=== PATIENT | male | born 1955 | race African-American/Black ===

== ENCOUNTER 2017-03-30 10:42 | Emergency (ER) | payer MEDICAID ==
[~2017-03-30] VITALS: Ht 182.9 cm; Wt 84.0 kg
[2017-03-30] MEDS ORDERED: LISI2.5T47 PO (10:58)
[2017-03-30] MEDS ORDERED: HYDR12.529 PO (10:58)
[2017-03-30 12:35] LABS: CLARITY URINE CLEAR (CLEAR); COLOR URINE YELLOW (YELLOW); KETONES URINE NEGATIVE (NEGATIVE); LEUKOCYTE ESTERASE URINE NEGATIVE (NEGATIVE); NITRITE URINE NEGATIVE (NEGATIVE); OCCULT BLOOD URINE 2+ (NEGATIVE); PH URINE 7.5 (4.5-8.0); PROTEIN URINE NEGATIVE (NEGATIVE); SPECIFIC GRAVITY URINE 1.014 (1.005-1.030)
[2017-03-30] MEDS ORDERED: SODIUM CHLORIDE 0.9% 1,000 ML IV ONE (12:42)
[2017-03-30 13:21] LABS: BASOPHILS % 1.2 % (0.0-2.0); EOSINOPHILS % 5.5 % (0.0-5.0); HEMATOCRIT. 39.8 % (42.0-52.0); HEMOGLOBIN. 13.8 g/dL (14.0-18.0); LYMPHOCYTES % 34.2 % (20.0-50.0); MEAN CORPUSCULAR HEMOGLOBIN 30.8 pg (28.0-32.0); MEAN CORPUSCULAR VOLUME 88.7 fL (80.0-94.0); MEAN PLATELET VOLUME 6.8 fl (7.4-10.4); MONOCYTES % 9.4 % (2.0-8.0); NEUTROPHILS % 49.7 % (40.0-76.0); PLATELET 181 x1000/uL (130-400); RED BLOOD CELL COUNT 4.49 mill/uL (4.7-6.1); RED CELL DISTRIBUTION WIDTH 12.9 % (11.6-14.6)
[2017-03-30 13:28] LABS: PROTHROMBIN TIME 10.5 sec (9.4-11.6)
[2017-03-30 13:35] LABS: CARBON DIOXIDE 30 mEq/L (21-32); CHLORIDE 104 mEq/L (98-107)
[2017-03-30] MEDS ORDERED: MORPHINE SULFATE 4 MG/ML CPJ (NOT FOR IM USE) IV ONE (14:00)
[2017-03-30] MEDS ORDERED: ONDANSETRON HCL 4MG/2ML VIAL IV ONE (14:00)
[2017-03-30 17:49] VITALS: BP 142/86
== END 2017-03-30 17:51 | disposition home or self-care (01) ==
LOC: ER 11:40
DX: R31.9 Hematuria, unspecified (principal); R10.84 Generalized abdominal pain; I10 Essential (primary) hypertension; F17.200 Nicotine dependence, unspecified, uncomplicated
CPT/HCPCS: 36415; 74176; 80053; 81001; 85025; 85610; 99285; J7030

== ENCOUNTER 2019-11-21 10:08 | Emergency (ER) | payer MEDICAID ==
[~2019-11-21] VITALS: Ht 182.9 cm; Wt 87.0 kg
[~2019-11-21 10:08] MED LIST: HYDR12.529 PO; LISI2.5T47 PO
[2019-11-21 11:16] LABS: BASOPHILS % 1.1 % (0.0-2.0); EOSINOPHILS % 12.1 % (0.0-5.0); HEMATOCRIT. 41.2 % (42.0-52.0); HEMOGLOBIN. 14.1 g/dL (14.0-18.0); LYMPHOCYTES % 27.8 % (20.0-50.0); MEAN CORPUSCULAR HEMOGLOBIN 30.1 pg (28.0-32.0); MEAN CORPUSCULAR VOLUME 87.9 fL (80.0-94.0); MEAN PLATELET VOLUME 7.1 fl (7.4-10.4); MONOCYTES % 8.4 % (2.0-8.0); NEUTROPHILS % 50.6 % (40.0-76.0); PLATELET 168 x1000/uL (130-400); RED BLOOD CELL COUNT 4.69 mill/uL (4.7-6.1); RED CELL DISTRIBUTION WIDTH 13.3 % (11.6-14.6)
[2019-11-21 11:19] LABS: CHLORIDE 109 mEq/L (98-107)
[2019-11-21 11:23] LABS: ETHANOL BLOOD < 10 mg/dL
[2019-11-21 14:34] LABS: *AMPHETAMINES SCREEN URINE NEGATIVE (NEGATIVE); *BARBITURATES SCREEN URINE NEGATIVE (NEGATIVE); *BENZODIAZEPINES SCREEN URINE NEGATIVE (NEGATIVE); *COCAINE SCREEN URINE NEGATIVE (NEGATIVE); METHADONE URINE SCREEN NEGATIVE (NEGATIVE); OPIATES URINE SCREEN NEGATIVE (NEGATIVE)
[2019-11-21 14:35] LABS: CANNABINOID URINE SCREEN PRESUMTIVE POSITIVE (NEGATIVE); PHENCYCLIDINE URINE SCREEN NEGATIVE (NEGATIVE)
[2019-11-21] MEDS ORDERED: FUROSEMIDE 20MG/2ML VIAL IVP ONE (15:00)
[2019-11-21] MEDS ORDERED: FUROSEMIDE 20MG TABLET PO STA (15:23)
[2019-11-21 15:57] VITALS: BP 178/97
== END 2019-11-21 16:44 | disposition home or self-care (01) ==
LOC: ER 10:16
DX: R60.0 Localized edema (principal); N17.9 Acute kidney failure, unspecified; I10 Essential (primary) hypertension; E11.9 Type 2 diabetes mellitus without complications
CPT/HCPCS: 36415; 71045; 80053; 80305; 80320; 83880; 84484; 85025; 93005; 93970; 99285; G0480

== ENCOUNTER → 2020-12-29 | Day surgery (SDC) | payer MEDICARE, MEDICAID ==
[~2020-12-29] VITALS: Ht 182.9 cm; Wt 70.3 kg
[~2020-12-29] MED LIST changes: +ALBU18HF2 IH; +ALLO100T PO; +AMLO10TA80 PO; +BACITRACIN 15GM TUBE TOP ONE; +BUPIVACAINE HCL/PF 0.5% (5MG/ML) 10ML ONE; +CARV3.1242 MT; +CEFAZOLIN SODIUM 1000MG/VIAL ONE; +CHOL400D7 PO; +FENTANYL CITRATE/PF 50MCG/ML 2ML VIAL ONE; +FERR325T6 MT; +FURO80TA3 PO; +GLYCOPYRROLATE 0.2 MG/ML 2ML VIAL ONE; +HEPARIN 1000 UNITS/ML 10ML ONE; +HEPARIN SODIUM 1,000 UNIT/1ML VIAL IV ONE; +HEPARIN SODIUM 1,000 UNIT/1ML VIAL IV SCH; +HYDR-4135 PO; -HYDR12.529 PO; +ISOS10TA2 PO; +LIDOCAINE HCL 1% 20ML VIAL (Pyxis) INJ ONE; -LISI2.5T47 PO; +LOSA100T32 MT; +METOCLOPRAMIDE HCL 10MG/2ML VIAL ONE; +MIDAZOLAM HCL 2 MG/2 ML VIAL ONE; +NIFE-33 MT; +OMEP40CA20 PO; +ONDANSETRON HCL 4MG/2ML INJ ONE; +PANT40TA51 PO; +POLYMYXIN B SULFATE 500000 UNITS/VIAL ONE; +PROPOFOL 200MG/20ML VIAL IV ONE; +PROTAMINE SULFATE 10MG/ML VIAL 5ML IV ONE; +ROPIVACAINE HCL 10MG/ML 20 ML VIAL EPI ONE; +SEVE800T8 PO; +SODIUM CHLORIDE 0.9% 500 ML IV ONE; +SUCCINYLCHOLINE CHLORIDE 200MG/10ML IV ONE; +THROMBIN (BOVINE) 5000 UNITS/VIAL TOP ONE
[2020-12-29 07:47] LABS: BASOPHILS % 0.9 % (0.0-2.0); EOSINOPHILS % 5.4 % (0.0-5.0); HEMATOCRIT. 33.2 % (42.0-52.0); HEMOGLOBIN. 11.3 g/dL (14.0-18.0); LYMPHOCYTES % 28.5 % (20.0-50.0); MEAN CORPUSCULAR HEMOGLOBIN 30.8 pg (28.0-32.0); MEAN CORPUSCULAR VOLUME 90.9 fL (80.0-94.0); MEAN PLATELET VOLUME 6.5 fl (7.4-10.4); MONOCYTES % 9.2 % (2.0-8.0); PLATELET 195 x1000/uL (130-400); RED BLOOD CELL COUNT 3.66 mill/uL (4.7-6.1); RED CELL DISTRIBUTION WIDTH 15.7 % (11.6-14.6)
[2020-12-29 08:29] LABS: PARTIAL THROMBOPLASTIN TIME 29.2 sec (23.4-31.0); PROTHROMBIN TIME 10.4 sec (9.6-11.0)
== END | disposition home or self-care (01) ==
LOC: OR 06:33
PROVIDERS: ATTEND Surgery Vascular Surgery
DX: I12.0 Hypertensive chronic kidney disease with stage 5 chronic kidney disease or end stage renal disease (principal); N18.6 End stage renal disease; M19.90 Unspecified osteoarthritis, unspecified site; K21.9 Gastro-esophageal reflux disease without esophagitis; I73.9 Peripheral vascular disease, unspecified; Z79.899 Other long term (current) drug therapy; Z98.890 Other specified postprocedural states; Z87.891 Personal history of nicotine dependence; Z20.822 Contact with and (suspected) exposure to COVID-19
CPT/HCPCS: 36415; 36821; 64415; 80048; 85025; 85610; 85730; 87426; 93005; J0330; J0690; J1644; J2250; J2405; J2704; J2720; J2765; J2795; J3010; J3490; J7040; A4565

== ENCOUNTER 2022-04-18 03:26 | Inpatient (IN) | payer MEDICARE, MEDICAID ==
[2022-04-18] VITALS (10 sets, daily range): BP systolic 93–186; BP diastolic 63–119
[~2022-04-18] VITALS: Ht 182.9 cm; Wt 65.8 kg
[~2022-04-18 03:26] MED LIST changes: -BACITRACIN 15GM TUBE TOP ONE; -BUPIVACAINE HCL/PF 0.5% (5MG/ML) 10ML ONE; -CARV3.1242 MT; -CEFAZOLIN SODIUM 1000MG/VIAL ONE; -FENTANYL CITRATE/PF 50MCG/ML 2ML VIAL ONE; -FERR325T6 MT; -FURO80TA3 PO; -GLYCOPYRROLATE 0.2 MG/ML 2ML VIAL ONE; -HEPARIN 1000 UNITS/ML 10ML ONE; -HEPARIN SODIUM 1,000 UNIT/1ML VIAL IV ONE; -HEPARIN SODIUM 1,000 UNIT/1ML VIAL IV SCH; -ISOS10TA2 PO; -LIDOCAINE HCL 1% 20ML VIAL (Pyxis) INJ ONE; -LOSA100T32 MT; -METOCLOPRAMIDE HCL 10MG/2ML VIAL ONE; -MIDAZOLAM HCL 2 MG/2 ML VIAL ONE; -NIFE-33 MT; -ONDANSETRON HCL 4MG/2ML INJ ONE; -PANT40TA51 PO; -POLYMYXIN B SULFATE 500000 UNITS/VIAL ONE; -PROPOFOL 200MG/20ML VIAL IV ONE; -PROTAMINE SULFATE 10MG/ML VIAL 5ML IV ONE; -ROPIVACAINE HCL 10MG/ML 20 ML VIAL EPI ONE; -SODIUM CHLORIDE 0.9% 500 ML IV ONE; -SUCCINYLCHOLINE CHLORIDE 200MG/10ML IV ONE; -THROMBIN (BOVINE) 5000 UNITS/VIAL TOP ONE
[2022-04-18 06:33] LABS: BASOPHILS % 1.1 % (0.0-2.0); EOSINOPHILS % 8.3 % (0.0-5.0); HEMATOCRIT. 24.4 % (42.0-52.0); HEMOGLOBIN. 8.2 g/dL (14.0-18.0); LYMPHOCYTES % 17.9 % (20.0-50.0); MEAN CORPUSCULAR VOLUME 91.7 fL (80.0-94.0); MEAN PLATELET VOLUME 7.2 fl (7.4-10.4); MONOCYTES % 8.9 % (2.0-8.0); NEUTROPHILS % 63.8 % (40.0-76.0); PLATELET 125 x1000/uL (130-400); RED BLOOD CELL COUNT 2.65 mill/uL (4.7-6.1); RED CELL DISTRIBUTION WIDTH 13.5 % (11.6-14.6)
[2022-04-18 06:41] LABS: CHLORIDE 101 mEq/L (98-107)
[2022-04-18] MEDS ORDERED: MAGNESIUM/ALUMINUM HYDROXIDE/SIMETHICONE 30ML UDC PO PRN (12:00)
[2022-04-18] MEDS ORDERED: ACETAMINOPHEN 325MG TABLET PO PRN ×2 (12:00)
[2022-04-18] MEDS ORDERED: GUAIFENESIN 200MG/10ML SUGAR FREE UDC PO PRN (12:00)
[2022-04-18] MEDS ORDERED: CLONIDINE 0.1MG TABLET PO PRN (12:00)
[2022-04-18] MEDS ORDERED: IPRATROPIUM/ALBUTEROL 0.5-3(2.5)MG/3ML NEB NEB PRN (12:00)
[2022-04-18] MEDS ORDERED: DOCUSATE SODIUM 100MG CAPSULE PO PRN (12:00)
[2022-04-18] MEDS ORDERED: ONDANSETRON HCL 4MG/2ML INJ IV PRN (12:00)
[2022-04-18] MEDS ORDERED: ZOLPIDEM TARTRATE 5MG TABLET PO PRN (12:00)
[2022-04-18] MEDS: AMLODIPINE 10MG TABLET PO SCH (12:19)
[2022-04-18] MEDS: SEVELAMER CARBONATE 800 MG TABLET PO SCH ×2 (12:20→18:17)
[2022-04-18 12:45] LABS: T4 FREE 1.26 ng/dL (0.76-1.46)
[2022-04-18] MEDS: ENOXAPARIN 30MG/0.3ML SYR SUBCUT SCH (13:00)
[2022-04-18 13:46] LABS: VITAMIN B12 SERUM 770 pg/mL (211-911)
[2022-04-18] MEDS ORDERED: HYDRALAZINE HCL 50MG TABLET PO SCH (14:00)
[2022-04-18 16:56] LABS: CREATINE KINASE MB FRACTION 3.7 ng/mL (0.5-3.6)
[2022-04-18] MEDS: HYDRALAZINE HCL 50MG TABLET PO SCH (21:37)
[2022-04-19] VITALS: BP 140/81
[2022-04-19 00:45] LABS: CREATINE KINASE MB FRACTION 4.5 ng/mL (0.5-3.6)
[2022-04-19 04:00] VITALS: BP 184/121
[2022-04-19] MEDS: SEVELAMER CARBONATE 800 MG TABLET PO SCH ×3 (06:19→17:40)
[2022-04-19] MEDS: HYDRALAZINE HCL 50MG TABLET PO SCH (06:19)
[2022-04-19 06:35] LABS: BASOPHILS % 1.4 % (0.0-2.0); EOSINOPHILS % 7.6 % (0.0-5.0); HEMATOCRIT. 24.9 % (42.0-52.0); HEMOGLOBIN. 8.3 g/dL (14.0-18.0); LYMPHOCYTES % 14.2 % (20.0-50.0); MEAN CORPUSCULAR HEMOGLOBIN 30.7 pg (28.0-32.0); MEAN PLATELET VOLUME 8.2 fl (7.4-10.4); MONOCYTES % 9.3 % (2.0-8.0); NEUTROPHILS % 67.5 % (40.0-76.0); PLATELET 140 x1000/uL (130-400); RED BLOOD CELL COUNT 2.71 mill/uL (4.7-6.1); RED CELL DISTRIBUTION WIDTH 13.5 % (11.6-14.6)
[2022-04-19 08:00] VITALS: BP 156/96
[2022-04-19 08:16] LABS: CHLORIDE 105 mEq/L (98-107)
[2022-04-19] MEDS: LOSARTAN POTASSIUM 100 MG TABLET PO SCH (08:47)
[2022-04-19] MEDS: ASPIRIN 81MG EC TABLET PO SCH (08:48)
[2022-04-19] MEDS: CALCITRIOL 0.25MCG CAPSULE PO SCH (08:48)
[2022-04-19] MEDS: ISOSORBIDE MONONITRATE 60MG TABLET SR 24HR PO SCH (08:48)
[2022-04-19] MEDS: AMLODIPINE 10MG TABLET PO SCH (08:48)
[2022-04-19] MEDS: FAMOTIDINE 20MG TABLET PO SCH (08:48)
[2022-04-19] MEDS ORDERED: LOSARTAN POTASSIUM 50 MG TABLET PO SCH (09:00)
[2022-04-19 12:00] VITALS: BP 142/90
[2022-04-19] MEDS: ENOXAPARIN 30MG/0.3ML SYR SUBCUT SCH (12:52)
[2022-04-19] MEDS: HYDRALAZINE HCL 100MG TABLET PO SCH ×3 (13:00→22:28)
[2022-04-19 16:00] VITALS: BP 152/67
[2022-04-19 18:08] LABS: HEPATITIS B SURFACE ANTIGEN NEGATIVE
[2022-04-19 19:49] VITALS: BP 149/90
[2022-04-20] VITALS (13 sets, daily range): BP systolic 135–169; BP diastolic 87–108
[2022-04-20] MEDS: HYDRALAZINE HCL 100MG TABLET PO SCH ×3 (06:22→21:30)
[2022-04-20] MEDS: SEVELAMER CARBONATE 800 MG TABLET PO SCH ×4 (07:20→16:24)
[2022-04-20] MEDS: FAMOTIDINE 20MG TABLET PO SCH ×2 (08:44→08:55)
[2022-04-20] MEDS: ISOSORBIDE MONONITRATE 60MG TABLET SR 24HR PO SCH (08:44)
[2022-04-20] MEDS: LOSARTAN POTASSIUM 100 MG TABLET PO SCH (08:44)
[2022-04-20] MEDS: ASPIRIN 81MG EC TABLET PO SCH (08:44)
[2022-04-20] MEDS: CALCITRIOL 0.25MCG CAPSULE PO SCH ×2 (08:44→08:55)
[2022-04-20] MEDS: AMLODIPINE 10MG TABLET PO SCH (08:45)
[2022-04-20 11:27] LABS: BASOPHILS % 1.2 % (0.0-2.0); EOSINOPHILS % 9.4 % (0.0-5.0); HEMATOCRIT. 25.7 % (42.0-52.0); HEMOGLOBIN. 8.6 g/dL (14.0-18.0); LYMPHOCYTES % 19.5 % (20.0-50.0); MEAN CORPUSCULAR HEMOGLOBIN 30.9 pg (28.0-32.0); MEAN CORPUSCULAR VOLUME 92.1 fL (80.0-94.0); MEAN PLATELET VOLUME 8.1 fl (7.4-10.4); MONOCYTES % 9.7 % (2.0-8.0); NEUTROPHILS % 60.2 % (40.0-76.0); PLATELET 155 x1000/uL (130-400); RED BLOOD CELL COUNT 2.79 mill/uL (4.7-6.1); RED CELL DISTRIBUTION WIDTH 14.1 % (11.6-14.6)
[2022-04-20] MEDS: ENOXAPARIN 30MG/0.3ML SYR SUBCUT SCH (13:00)
[2022-04-20] MEDS ORDERED: EPOETIN ALFA-EPBX 4,000 UNIT/ML VIAL SUBCUT SCH (21:00)
[2022-04-21] VITALS: BP 135/81
[2022-04-21 05:00] VITALS: BP 160/96
[2022-04-21] MEDS: HYDRALAZINE HCL 100MG TABLET PO SCH (05:03)
[2022-04-21 08:00] VITALS: BP 150/110
[2022-04-21] MEDS: ASPIRIN 81MG EC TABLET PO SCH (09:56)
[2022-04-21] MEDS: AMLODIPINE 10MG TABLET PO SCH (09:56)
[2022-04-21] MEDS: SEVELAMER CARBONATE 800 MG TABLET PO SCH ×2 (09:57→12:20)
[2022-04-21] MEDS: ISOSORBIDE MONONITRATE 60MG TABLET SR 24HR PO SCH (09:57)
[2022-04-21] MEDS: CALCITRIOL 0.25MCG CAPSULE PO SCH (09:57)
[2022-04-21] MEDS: FAMOTIDINE 20MG TABLET PO SCH (09:57)
[2022-04-21] MEDS: LOSARTAN POTASSIUM 100 MG TABLET PO SCH (09:57)
[2022-04-21 11:26] VITALS: BP 142/92
[2022-04-21] MEDS: ENOXAPARIN 30MG/0.3ML SYR SUBCUT SCH (13:00)
== END 2022-04-21 13:00 | disposition home or self-care (01) | DRG 291 ==
LOC: ER 03:26 → MICUSO 10:54 → EDBEDREQ 11:02 → EDBEDREQTM 11:02 → SUPCPDRO 11:35 → 3WST 15:05
PROVIDERS: ADMIT Internal Medicine; ATTEND Internal Medicine
PROC: 5A1D70Z Performance of Urinary Filtration, Intermittent, Less than 6 Hours Per Day (ICD-10-PCS; 2022-04-18)
PROC: 5A1D70Z Performance of Urinary Filtration, Intermittent, Less than 6 Hours Per Day (ICD-10-PCS; principal; 2022-04-20)
DX: I13.2 Hypertensive heart and chronic kidney disease with heart failure and with stage 5 chronic kidney disease, or end stage renal disease (principal); I50.33 Acute on chronic diastolic (congestive) heart failure; N18.6 End stage renal disease; J96.01 Acute respiratory failure with hypoxia; E44.1 Mild protein-calorie malnutrition; Z68.1 Body mass index [BMI] 19.9 or less, adult; E88.09 Other disorders of plasma-protein metabolism, not elsewhere classified; D69.59 Other secondary thrombocytopenia; D63.1 Anemia in chronic kidney disease; I27.29 Other secondary pulmonary hypertension; F41.9 Anxiety disorder, unspecified; Z87.891 Personal history of nicotine dependence; Z99.2 Dependence on renal dialysis; Z90.5 Acquired absence of kidney; Z91.199 Patient's noncompliance with other medical treatment and regimen due to unspecified reason
CPT/HCPCS: 36415; 71045; 80048; 80053; 80061; 82550; 82553; 82607; 82746; 83036; 83540; 83550; 83735; 83880; 84100; 84439; 84443; 84484; 85025; 86705; 86709; 86803; 87340; 90935; 93005; 93306; 93970; 97162; 97166; 99285; J0885; J1650

== ENCOUNTER 2022-04-30 12:30 | Emergency (ER) | payer MEDICARE, MEDICAID ==
[~2022-04-30] VITALS: Ht 182.9 cm; Wt 81.0 kg
[2022-04-30] MEDS ORDERED: LIDOCAINE 5% PATCH TOP SCH (13:00)
[2022-04-30] MEDS ORDERED: ACETAMINOPHEN 325MG TABLET PO ONE (13:00)
[2022-04-30 16:15] LABS: EOSINOPHILS % 3.6 % (0.0-5.0); HEMATOCRIT. 24.4 % (42.0-52.0); HEMOGLOBIN. 8.3 g/dL (14.0-18.0); LYMPHOCYTES % 13.6 % (20.0-50.0); MEAN CORPUSCULAR HEMOGLOBIN 31.6 pg (28.0-32.0); MEAN CORPUSCULAR VOLUME 92.3 fL (80.0-94.0); MEAN PLATELET VOLUME 8.1 fl (7.4-10.4); MONOCYTES % 8.8 % (2.0-8.0); PLATELET 140 x1000/uL (130-400); RED BLOOD CELL COUNT 2.65 mill/uL (4.7-6.1); RED CELL DISTRIBUTION WIDTH 14.3 % (11.6-14.6)
[2022-04-30 16:22] LABS: CHLORIDE 103 mEq/L (98-107)
[2022-04-30] MEDS ORDERED: SODI454P4 PO (16:38)
[2022-05-01] VITALS (8 sets, daily range): BP systolic 162–188; BP diastolic 82–114
[2022-05-01] MEDS ORDERED: CARVEDILOL 6.25 MG TABLET PO SCH (09:00)
[2022-05-01] MEDS ORDERED: LOSARTAN POTASSIUM 50 MG TABLET PO NR (17:45)
[2022-05-01 18:04] LABS: HEPATITIS B SURFACE ANTIGEN NEGATIVE
[2022-05-02] MEDS ORDERED: SEVELAMER CARBONATE 800 MG TABLET PO SCH (09:00)
[2022-05-02] MEDS ORDERED: FOLIC ACID/VITAMIN B COMP W-C TABLET PO SCH (09:00)
[2022-05-02] MEDS ORDERED: AMLODIPINE 10MG TABLET PO SCH (09:00)
[2022-05-02] MEDS ORDERED: ISOSORBIDE MONONITRATE 60MG TABLET SR 24HR PO SCH (09:00)
[2022-05-02] MEDS ORDERED: HYDRALAZINE HCL 100MG TABLET PO SCH (14:00)
[2022-05-02] MEDS ORDERED: ATORVASTATIN CALCIUM 40MG TABLET PO SCH (21:00)
[2022-05-02] MEDS ORDERED: CARVEDILOL 12.5MG TABLET PO SCH (21:00)
[2022-05-03] MEDS ORDERED: LOSARTAN POTASSIUM 100 MG TABLET PO SCH (09:00)
[2022-05-03] MEDS ORDERED: CLOPIDOGREL 75MG TABLET PO SCH (09:00)
[2022-05-04] MEDS ORDERED: CALCITRIOL 0.25MCG CAPSULE PO SCH (09:00)
== END 2022-04-30 17:49 | disposition home or self-care (01) ==
LOC: ER 12:30
DX: I13.2 Hypertensive heart and chronic kidney disease with heart failure and with stage 5 chronic kidney disease, or end stage renal disease (principal); J96.01 Acute respiratory failure with hypoxia; S09.8XXA Other specified injuries of head, initial encounter; I16.0 Hypertensive urgency; I50.33 Acute on chronic diastolic (congestive) heart failure; J44.1 Chronic obstructive pulmonary disease with (acute) exacerbation; S19.89XA Other specified injuries of other specified part of neck, initial encounter; S39.82XA Other specified injuries of lower back, initial encounter; Y04.8XXA Assault by other bodily force, initial encounter; Y92.810 Car as the place of occurrence of the external cause; W17.89XA Other fall from one level to another, initial encounter; F41.9 Anxiety disorder, unspecified; Y93.89 Activity, other specified; D53.9 Nutritional anemia, unspecified; N18.6 End stage renal disease; Z99.2 Dependence on renal dialysis; Z90.5 Acquired absence of kidney; Z87.891 Personal history of nicotine dependence; Z79.899 Other long term (current) drug therapy
CPT/HCPCS: 36415; 80053; 80074; 85025; 99285